=== PATIENT | female | born 1990 ===

== ENCOUNTER 2019-09-24 04:10 | Inpatient (IN) ==
[2019-09-24 05:37] LABS: Mean Corpuscular Hemoglobin 28.8 pg (25-34); Mean Corpuscular Volume 86.3 fL (80-100); Mean Platelet Volume 10.6 fL (7.4-10.4); Platelet Count 176 K/uL (130-400); RDW Coefficient of Variation 15.1 % (11.5-14.5); RDW Standard Deviation 47.3 fL (36.4-46.3); Red Blood Count 4.17 M/uL (4.2-5.4); White Blood Count 13.87 K/uL (4.8-10.8)
[2019-09-24 05:44] LABS: Mean Corpuscular Hgb Conc 33.3 g/dL (32-36)
[2019-09-24 06:03] LABS: Alanine Aminotransferase 18 U/L (12-78); Albumin Level 2.9 gm/dl (3.4-5.0); Aspartate Aminotransferase 11 U/L (15-37); BUN Creatinine Ratio 17.5 (10-20); Bilirubin Direct < 0.1 mg/dl (0-0.2); Blood Urea Nitrogen 14 mg/dl (7-18); Calcium 9.7 mg/dl (8.5-10.1); Carbon Dioxide 22 mmol/L (21-32); Chloride 107 mmol/L (98-107); Creatinine Clr Calc Pharmacy 125.6 ml/min; Est GFR (African American) 119.9; Est GFR (Non-African American) 103.5; Glucose 86 mg/dl (70-99); Potassium 4.1 mmol/L (3.5-5.1); Sodium 136 mmol/L (136-145)
[2019-09-24 06:05] LABS: Albumin Globulin Ratio 0.7 (0.9-2); Alkaline Phosphatase 118 U/L (45-117); Bilirubin,Total 0.2 mg/dl (0.2-1); Globulin 4.1 gm/dl (2.5-4.0)
[2019-09-24] MEDS ORDERED: LACTATED RINGER'S 1,000 ML IV PRN (07:20)
[2019-09-24] MEDS ORDERED: OXYTOCIN 30 UNITS/500 ML BAG IV PRN ×2 (07:20→12:04)
--- NOTE | 2019-09-24 07:20 | Obstetrical Progress Note ---
Date of Service September 24, 2019 Physical Exam Physical Exam: Admit Note 29 F P0000 at 40.6 weeks admitted in labor. Patient of Vick Pascual that was scheduled for IOL this week at [facility] and showed up here at [facility]. Her GBS is positive. Cervix 3/80/-3/vertex/mid-position/soft/intact/vertex. EFW 8.5 lbs. Will admit in labor and start antibiotics. Patient planning for epidural. Results & Data Vital Signs (Past 12 Hours) Vital Signs Temp Resp BP 09/24/19 06:23 141/74 H 09/24/19 05:40 133/69 09/24/19 05:25 150/80 H 09/24/19 05:10 131/69 09/24/19 04:55 153/68 H 09/24/19 04:39 159/82 H 09/24/19 04:36 162/79 H 09/24/19 04:30 133/89 09/24/19 04:25 142/81 H 09/24/19 04:20 165/95 H 09/24/19 04:18 36.9 C 18 09/24/19 04:14 169/100 H 09/24/19 04:11 174/90 H
[2019-09-24] MEDS ORDERED: PENICILLIN G POTASSIUM 6 MU in DEXTROSE 5% 250 ML IV STA (07:24)
[2019-09-24 07:27] LABS: Creatinine Urine Random 98.7 mg/dl; Protein Creatinine Ratio Urine 0.4 (0-0.2)
[2019-09-24] MEDS: PENICILLIN G POTASSIUM 3 MU in DEXTROSE 5% 100 ML IV PRN ×3 (11:42→19:50)
--- NOTE | 2019-09-24 12:04 | Obstetrical Progress Note ---
Date of Service September 24, 2019 Subjective pt dong well FHr; CAT1 ctx; mild , irregular VE 3cm- uncahnged discussed Pitocin augmentation. pt agrees Results & Data Vital Signs (Past 12 Hours) Vital Signs Temp Pulse Resp BP 09/24/19 11:53 112 H 118/67 09/24/19 10:15 111 H 127/67 09/24/19 08:46 99 H 18 122/73 09/24/19 07:41 99 H 121/74 09/24/19 07:29 37.1 C 90 18 129/73 09/24/19 06:23 141/74 H 09/24/19 05:40 133/69 09/24/19 05:25 150/80 H 09/24/19 05:10 131/69 09/24/19 04:55 153/68 H 09/24/19 04:39 159/82 H 09/24/19 04:36 162/79 H 09/24/19 04:30 133/89 09/24/19 04:25 142/81 H 09/24/19 04:20 165/95 H 09/24/19 04:18 36.9 C 18 09/24/19 04:14 169/100 H 09/24/19 04:11 174/90 H
[2019-09-24] MEDS ORDERED: fentaNYL citrate 100 MCG/2 ML VIAL ONE (12:35)
[2019-09-24] MEDS ORDERED: ePHEDrine sulfate 50 MG/ML AMP ONE (12:35)
[2019-09-24] MEDS ORDERED: fentaNYL 2MCG/ML ROPIV 1.25MG/ML 100 ML BAG EPI ONE (12:36)
[2019-09-24] MEDS ORDERED: BUPIVACAINE 0.25% 30 ML VIAL ONE (12:36)
[2019-09-24] MEDS ORDERED: NALOXONE HCL 1 MG in SODIUM CHLORIDE 0.9% 1000ML 1,000 ML IV PRN (13:08)
[2019-09-24] MEDS ORDERED: NALOXONE HCL 0.4 MG/1 ML VIAL/CARP IV PRN (13:08)
[2019-09-24] MEDS ORDERED: NALBUPHINE HCL INJ 10 MG/ML AMP IV PRN (13:08)
[2019-09-24] MEDS ORDERED: DiphenhydrAMINE HCL 50 MG/ML VIAL IV PRN (13:08)
[2019-09-24] MEDS ORDERED: ONDANSETRON INJ 2 MG/ML 2 ML VIAL IV PRN (13:08)
[2019-09-24] MEDS ORDERED: ePHEDrine sulfate 50 MG/ML AMP IV PRN (13:08)
--- NOTE | 2019-09-24 13:10 | Anesthesiology Consultation ---
Date of Service September 24, 2019 Assessment & Plan Chart Review Chart Review: Patient NOT seen in Pre Admission Testing and Acceptable Risk for Labor Epidural Consults Requested none ASA ASA2 Proposed Anesthesia Anesthesia Type: Labor Epidural and CSE Risk / Benefits Reviewed With: PT / POA / Parent / Guardian, Accepts Plan and Informed Consent Obtained History Height/Weight Height: 5 ft 5 in Weight: 99.79 kg Allergies Allergy/AdvReac Type Severity Reaction Status Date / Time No Known Allergies Allergy Verified 09/24/19 05:08 Medications Home Medications Medication Instructions Recorded Confirmed Last Taken PNV cmb#95-ferrous fumarate-FA 1 tab PO DAILY 09/24/19 09/24/19 09/23/19 08:00 [] ferrous sulfate [iron] 325 mg PO DAILY 09/24/19 09/24/19 09/23/19 08:00 Active Medications Generic Name Dose Route Start Last Admin Trade Name Freq PRN Reason Stop Dose Admin Lactated Ringer's 1,000 mls @ 125 mls/hr 09/24/19 07:20 09/24/19 07:53 Lr IV 09/26/19 07:19 125 mls/hr .Q8H PRN Administration L&D Protocol Protocol Penicillin G Potassium 3 mu/ 106 mls @ 100 mls/hr 09/24/19 07:20 09/24/19 11:42 Dextrose IV 10/04/19 07:19 100 mls/hr Q4H PRN Administration Give until delivery Oxytocin 30 units in 500 mls @ 2 mls/hr 09/24/19 12:04 09/24/19 12:27 Pitocin IV 09/26/19 12:03 0.12 units/hr .Q24H PRN 2 mls/hr Labor Induction/Augmentation Administration Protocol 0.12 UNITS/HR NPO Date Last Intake of Fluids: 09/24/19 Time Last Intake of Fluids: 11:00 Date Last Intake of Solids: 09/23/19 Time Last Intake of Solids: 18:00 Past Medical History Medical History Ganglion cyst Hernia Exercise / Class Metabolic Activity II 4-5 Yardwork/Stairs/Walk up hill Past Surgical History Surgical History [place] teeth removed Past Anesthesia History No Hx of Anesthesia Complications and No Family Hx of Anesthesia Complications History of PONV No Hx of PONV and No Hx of Motion Sickness Social History Smoking Status: Former smoker Hx Alcohol Use: No Hx Substance Use: No Review of Systems no chest pain or sob Physical Exam Vital Signs Last Vital Signs Temp 36.9 C 09/24/19 11:53 Pulse 93 H 09/24/19 13:08 Resp 20 09/24/19 11:53 BP 126/70 09/24/19 12:27 Pulse Ox 99 09/24/19 13:08 SpO2 99 on room air ENMT Mouth: no TMJ abnormality Thyromental Distance: > or= 3.5 Finger Breadths Mallampati Class: II Neck normal visual inspection Respiratory normal respiratory effort Auscultation: lungs clear to auscultation bilaterally Cardiovascular Rate/Rhythm: regular rate and regular rhythm Musculoskeletal Spine: normal cervical ROM Neurologic moves all extremities Psychiatric Orientation: alert and oriented x 3 Testing Laboratory Results 09/24/19 05:21 09/24/19 05:21
[2019-09-24] MEDS: fentaNYL 2MCG/ML ROPIV 1.25MG/ML 100 ML BAG EPI PRN ×2 (13:28→21:41)
--- NOTE | 2019-09-24 15:13 | Obstetrical Progress Note ---
Date of Service September 24, 2019 Subjective Pt evaluated after decels. this occurred after pt was placed onher left. FHR is improved after repositioning epidural analgesia on board Ctx 1-3mu VE; 6//-2 Pit; 6MU scalp electrode placed Expectant management for now Results & Data Vital Signs (Past 12 Hours) Vital Signs Temp Pulse Resp BP Pulse Ox 09/24/19 15:08 91 H 97 09/24/19 15:03 105 H 98 09/24/19 14:58 80 96 09/24/19 14:53 82 95 09/24/19 14:50 36.9 C 18 09/24/19 14:48 84 97 09/24/19 14:43 107 H 97 09/24/19 14:38 92 H 97 09/24/19 14:33 96 H 119/67 96 09/24/19 14:28 103 H 96 09/24/19 14:23 102 H 96 09/24/19 14:18 98 H 132/73 96 09/24/19 14:13 107 H 97 09/24/19 14:08 103 H 97 09/24/19 14:03 101 H 130/75 97 09/24/19 13:58 99 H 97 09/24/19 13:53 109 H 97 09/24/19 13:48 104 H 97 09/24/19 13:47 36.9 C 109 H 18 129/67 09/24/19 13:43 106 H 97 09/24/19 13:38 103 H 96 09/24/19 13:36 108 H 124/65 09/24/19 13:33 108 H 96 09/24/19 13:32 106 H 133/68 09/24/19 13:28 110 H 133/68 97 09/24/19 13:24 110 H 142/79 H 09/24/19 13:23 94 H 97 09/24/19 13:20 121 H 150/74 H 09/24/19 13:18 117 H 98 09/24/19 13:13 121 H 132/72 99 09/24/19 13:08 93 H 99 09/24/19 12:27 107 H 126/70 09/24/19 11:53 36.9 C 112 H 20 118/67 09/24/19 10:15 111 H 127/67 09/24/19 08:46 99 H 18 122/73 01/14/20 07:41 99 H 121/74 09/24/19 07:29 37.1 C 90 18 129/73 09/24/19 06:23 141/74 H 09/24/19 05:40 133/69 09/24/19 05:25 150/80 H 09/24/19 05:10 131/69 09/24/19 04:55 153/68 H 09/24/19 04:39 159/82 H 09/24/19 04:36 162/79 H 09/24/19 04:30 133/89 09/24/19 04:25 142/81 H 09/24/19 04:20 165/95 H 09/24/19 04:18 36.9 C 18 09/24/19 04:14 169/100 H 09/24/19 04:11 174/90 H
[2019-09-24] MEDS ORDERED: ACETAMINOPHEN 500 MG TAB ONE (16:55)
[2019-09-24] MEDS ORDERED: ACETAMINOPHEN 500 MG TAB PO PRN (16:57)
[2019-09-24] MEDS ORDERED: METHYLERGONOVINE MALEATE 0.2 MG/ML AMP ONE (23:57)
[2019-09-25] MEDS ORDERED: OXYTOCIN 30 UNITS/500 ML BAG IV PRN (00:14)
[2019-09-25] MEDS ORDERED: ACETAMINOPHEN 325 MG TAB PO PRN (00:14)
[2019-09-25] MEDS ORDERED: miSOPROStoL 200 MCG TAB PR ONE (00:14)
[2019-09-25] MEDS ORDERED: bisacodyL 10 MG SUPP PR PRN (00:14)
[2019-09-25] MEDS ORDERED: HYDROCORTISONE ACETATE 25 MG SUPP PR PRN (00:14)
[2019-09-25] MEDS ORDERED: METHYLERGONOVINE MALEATE 0.2 MG/ML AMP IM ONE (00:14)
[2019-09-25] MEDS ORDERED: DIPHTHERIA/TETANUS/PERTUSSIS 0.5 ML SYR/VIAL IM ONE (00:14)
[2019-09-25] MEDS ORDERED: BENZOCAINE 20% AER SPR 82.5 GM CAN EXT PRN (00:14)
[2019-09-25] MEDS ORDERED: SUPERCREAM 0.870% 15 GM JAR EXT PRN (00:14)
[2019-09-25 00:24] LABS: Base Excess Cord Arterial Bld -8.8 mEq/L (-9-1.8); CO2 Cord Arterial Blood 47 mmHg (39.1-73.5); HCO3 Cord Arterial Blood 19 mmol/L (19.7-28.5); PO2 Cord Arterial Blood 30 mmHg (4.1-31.7); pH Cord Arterial Blood 7.22 (7.1-7.38)
[2019-09-25 00:26] LABS: Oxygen Sat Cord Arterial Blood < 60.0 % (<60)
--- NOTE | 2019-09-25 00:58 | Anesthesia Procedure Note ---
Date of Service September 25, 2019 Anesthesia Post Epidural Note Vital Signs Vital Signs: Temp Pulse Resp BP Pulse Ox 37.1 C 107 H 18 126/71 98 09/25/19 00:34 09/25/19 00:49 09/25/19 00:34 09/25/19 00:49 09/24/19 22:48 Pain Intensity Abdomen: Pain Intensity: 0 Notes Mental Status: alert / awake / arousable and participated in evaluation Nausea / Vomiting: adequately controlled Pain: adequately controlled Airway Patency, RR, SpO2: stable & adequate BP & HR: stable & adequate Hydration State: stable & adequate Neuraxial Anesthesia: was administered and sensory block is resolving Anesthetic Complications: no major complications apparent and Pt Satisfied with anesthetic care Epidural: Removed without complications and With tip intact
[2019-09-25] MEDS: IBUPROFEN 600 MG TAB PO PRN ×4 (02:49→16:41)
--- NOTE | 2019-09-25 08:03 | Delivery Summary ---
DATE OF OPERATION: 09/24/2019 The patient delivered a live in left occiput anterior presentation. There was terminal meconium. was delivered, placed on mother's abdomen. Cord clamped and cut and handed over to the pediatric team. Details of infant's information is in the pediatric record. Cord blood was obtained, so was cord gas, and placenta spontaneously delivered. Inspection of the perineum showed second-degree midline laceration which was repaired in layers with 2-0 Vicryl. There was good hemostasis post repair. Estimated blood loss is 5 mL. Rectal exam post repair showed good sphincter tone. Baby and mother are stable in recovery. All instruments were removed from the vagina and accounted for including sponges, needles, and retractors. I attest to the content of the Intraoperative Record and any orders documented therein. Any exception s are noted below.
[2019-09-25] MEDS: FERROUS SULFATE 325 MG TAB PO SCH (08:22)
[2019-09-25] MEDS: PRENATAL VITAMIN 1 TAB PO SCH (08:22)
[2019-09-25] MEDS: DOCUSATE SODIUM 100 MG CAP PO SCH ×2 (08:22→20:21)
--- NOTE | 2019-09-25 10:40 | Obstetrical Progress Note ---
Date of Service September 25, 2019 Physical Exam Physical Exam: abdomen soft and non tender no calf tenderness ambulating well vaginal bleeding scant predelivery hgb 12.0 Results & Data Vital Signs (Past 12 Hours) Vital Signs Temp Pulse Pulse Resp BP BP Pulse Ox 09/25/19 07:05 36.9 C 97 H 18 129/83 98 09/25/19 04:45 37.2 C 09/25/19 03:30 38.3 C H 09/25/19 03:00 37.7 C H 100 H 18 146/76 H 97 09/25/19 02:04 37.1 C 103 H 18 139/66 09/25/19 01:19 113 H 18 136/64 09/25/19 01:05 100 H 18 135/67 09/25/19 00:49 107 H 18 126/71 09/25/19 00:34 37.1 C 111 H 18 124/59 L 09/25/19 00:19 107 H 135/63 09/24/19 23:56 120 H 139/64 09/24/19 23:00 37.0 C 18 09/24/19 22:49 115 H 141/77 H 09/24/19 22:48 111 H 98 09/24/19 22:43 107 H 97
[2019-09-25] MEDS ORDERED: LIDOCAINE 2% JELLY 5 ML TUBE ONE (14:31)
[2019-09-26] MEDS: IBUPROFEN 600 MG TAB PO PRN ×2 (00:31→07:55)
[2019-09-26 07:14] LABS: Hematocrit (blood only) 30.9 % (37-47); Hemoglobin 10.2 g/dL (12.0-16.0); Mean Corpuscular Hemoglobin 28.8 pg (25-34); Mean Corpuscular Volume 87.3 fL (80-100); Mean Platelet Volume 10.4 fL (7.4-10.4); Platelet Count 133 K/uL (130-400); RDW Coefficient of Variation 15.6 % (11.5-14.5); RDW Standard Deviation 50.4 fL (36.4-46.3); Red Blood Count 3.54 M/uL (4.2-5.4); White Blood Count 11.57 K/uL (4.8-10.8)
[2019-09-26] MEDS: PRENATAL VITAMIN 1 TAB PO SCH (07:55)
[2019-09-26] MEDS: DOCUSATE SODIUM 100 MG CAP PO SCH (07:55)
[2019-09-26] MEDS: FERROUS SULFATE 325 MG TAB PO SCH (07:55)
--- NOTE | 2019-09-26 08:14 | Obstetrical Progress Note ---
Date of Service September 26, 2019 Subjective Patient is seen and examined. She feels well, no complaints. Ambulating without dizziness Voiding without difficulty Tolerating regular diet with out N&V Bleeding is minimal No fever/ chills/ CP/ SOB/ N&V/ Leg pain Breast feeding without problems Vital Signs Temp Pulse Resp BP Pulse Ox 09/26/19 00:20 36.5 C 90 16 113/79 98 09/25/19 19:40 36.8 C 93 H 18 119/79 98 09/25/19 14:55 36.8 C 96 H 18 142/79 H 97 09/25/19 11:05 36.6 C 96 H 16 121/83 97 Intake and Output 09/25/19 09/26/19 09/26/19 22:59 06:59 14:59 Output Total 200 / 2250 550 / 2250 Balance -200 / -2250 -550 / -2250 Output: Urine 200 / 1550 550 / 1550 Lab Results 09/24/19 09/24/19 09/24/19 Range/Units 05:21 05:21 06:55 WBC 13.87 H (4.8-10.8) K/uL RBC 4.17 L (4.2-5.4) M/uL Hgb 12.0 (12.0-16.0) g/dL Hct 36.0 L (37-47) % MCV 86.3 (80-100) fL MCH 28.8 (25-34) pg MCHC 33.3 (32-36) g/dL RDW Std Deviation 47.3 H (36.4-46.3) fL RDW Coeff of Nohelia 15.1 H (11.5-14.5) % Plt Count 176 (130-400) K/uL MPV 10.6 H (7.4-10.4) fL Cord ABG pH (7.1-7.38) Cord ABG pCO2 (39.1-73.5) mmHg Cord ABG pO2 (4.1-31.7) mmHg Cord ABG HCO3 (19.7-28.5) mmol/L Cord ABG Base Excess (-9-1.8) mEq/L Cord ABG O2 Sat (<60) % Cord VBG pH Cord VBG pCO2 Cord VBG pO2 Cord VBG HCO3 Cord VBG Base Excess Cord VBG O2 Sat Barometric Pressure Blood Gas Comments Sodium 136 (136-145) mmol/L Potassium 4.1 (3.5-5.1) mmol/L Chloride 107 (98-107) mmol/L Carbon Dioxide 22 (21-32) mmol/L Anion Gap 7.0 (3-11) BUN 14 (7-18) mg/dl Creatinine 0.78 (0.6-1.2) mg/dl Est Cr Clr Drug Dosing 125.6 ml/min Est GFR ( Amer) 119.9 Est GFR (Non-Af Amer) 103.5 BUN/Creatinine Ratio 17.5 (10-20) Glucose 86 (70-99) mg/dl Calcium 9.7 (8.5-10.1) mg/dl Total Bilirubin 0.2 (0.2-1) mg/dl Direct Bilirubin < 0.1 (0-0.2) mg/dl AST 11 L (15-37) U/L ALT 18 (12-78) U/L Alkaline Phosphatase 118 H (45-117) U/L Total Protein 7.0 (6.4-8.2) gm/dl Albumin 2.9 L (3.4-5.0) gm/dl Globulin 4.1 H (2.5-4.0) gm/dl Albumin/Globulin Ratio 0.7 L (0.9-2) Ur Random Creatinine 98.7 mg/dl U Random Total Protein 38.0 H (0-11.9) mg/dl Protein/Creatinin Ratio 0.4 H (0-0.2) 09/24/19 09/24/19 09/26/19 Range/Units 23:50 23:50 06:35 WBC 11.57 H (4.8-10.8) K/uL RBC 3.54 L (4.2-5.4) M/uL Hgb 10.2 L (12.0-16.0) g/dL Hct 30.9 L (37-47) % MCV 87.3 (80-100) fL MCH 28.8 (25-34) pg MCHC 33.0 (32-36) g/dL RDW Std Deviation 50.4 H (36.4-46.3) fL RDW Coeff of Nohelia 15.6 H (11.5-14.5) % Plt Count 133 (130-400) K/uL MPV 10.4 (7.4-10.4) fL Cord ABG pH 7.22 (7.1-7.38) Cord ABG pCO2 47 (39.1-73.5) mmHg Cord ABG pO2 30 (4.1-31.7) mmHg Cord ABG HCO3 19 L (19.7-28.5) mmol/L Cord ABG Base Excess -8.8 (-9-1.8) mEq/L Cord ABG O2 Sat < 60.0 (<60) % Cord VBG pH Cancelled Cord VBG pCO2 Cancelled Cord VBG pO2 Cancelled Cord VBG HCO3 Cancelled Cord VBG Base Excess Cancelled Cord VBG O2 Sat Cancelled Barometric Pressure Cancelled Blood Gas Comments DONATO Cancelled Sodium (136-145) mmol/L Potassium (3.5-5.1) mmol/L Chloride (98-107) mmol/L Carbon Dioxide (21-32) mmol/L Anion Gap (3-11) BUN (7-18) mg/dl Creatinine (0.6-1.2) mg/dl Est Cr Clr Drug Dosing ml/min Est GFR ( Amer) Est GFR (Non-Af Amer) BUN/Creatinine Ratio (10-20) Glucose (70-99) mg/dl Calcium (8.5-10.1) mg/dl Total Bilirubin (0.2-1) mg/dl Direct Bilirubin (0-0.2) mg/dl AST (15-37) U/L ALT (12-78) U/L Alkaline Phosphatase (45-117) U/L Total Protein (6.4-8.2) gm/dl Albumin (3.4-5.0) gm/dl Globulin (2.5-4.0) gm/dl Albumin/Globulin Ratio (0.9-2) Ur Random Creatinine mg/dl U Random Total Protein (0-11.9) mg/dl Protein/Creatinin Ratio (0-0.2) PE: General: Alert, orientedx3, NAD Abd: soft, NT, fundus firm, below Umbilicus Perineum intact, Lochia rubra minimal Ext; NT, no edema AP: 29 yo s/p , ppd# 2 VSS Afebrile doing well Continue routine care All questions were answered D/C home , f/u in office Results & Data Vital Signs (Past 12 Hours) Vital Signs Temp Pulse Resp BP Pulse Ox 09/26/19 00:20 36.5 C 90 16 113/79 98
[2019-09-26] MEDS ORDERED: bisacodyL 5 MG TABEC PO SCH (20:00)
== END 2019-09-26 14:05 | disposition home or self-care (01) | DRG 807 ==
LOC: OPB 04:10 → 4S1 04:13 → 4S2 09-25 02:35

== ENCOUNTER 2021-08-16 15:30 | Inpatient (IN) ==
[2021-08-16] MEDS ORDERED: DINOPROSTONE 10 MG INSERT PV ONE (15:38)
[2021-08-16] MEDS ORDERED: OXYTOCIN 30 UNITS/500 ML BAG IV PRN (15:38)
--- NOTE | 2021-08-16 15:51 | History & Physical Report ---
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 Initial blood pressure was 142/82 and repeated 150/78. She returned 4 hours later and repeat blood pressure was 148/88. This met the criteria of gestational hypertension at term and she was sent to [facility] for induction of labor. Upon presentation she denies contractions, leaking of fluid or vaginal bleeding. Notes good movement. Denies headache, blurry vision, right upper q uadrant epigastric pain. Otherwise feeling well She has been on Valtrex since 36 weeks and denies any prodromal symptoms or current outbreaks. Only outbreak was Apr 2020, vulvovaginal, no outbreaks since. records reviewed Regnancy complicated by Rh- status, class II obesity, history of HSV, GBS positive Allergies Allergy/AdvReac Type Severity Reaction Status Date / Time No Known Allergies Allergy Verified 09/24/19 05:08 Home Medications Medication Instructions Recorded Confirmed Type ferrous sulfate 325 mg (65 mg 325 mg PO DAILY 09/24/19 08/16/21 History iron) tablet (iron) vit no.95-ferrous 1 tab PO DAILY 09/24/19 08/16/21 History fumarate 28 mg-folic acid 800 mcg tablet () valacyclovir 500 mg tablet 500 mg PO BID 08/16/21 08/16/21 History (Valtrex) Past Med/Surg History Medical History (Updated 08/16/21 @ 15:53 by Martha Peralta MD, PhD) Ganglion cyst Hernia Surgical History [place] teeth removed Social History Smoking Status: Never smoker Hx Alcohol Use: No Hx Substance Use: No Preferred Language: [place] Communication Ability: Effective [employer]r [employer] Required: No Beliefs That Will Affect Care: None marital status: Current Living Situation: Family Other Information That Helps Us Care for You: No Feels Safe at Home: Yes Safety Concerns: Feels Safe At This Time Assistive Devices: None Review of Systems Review of Systems: All systems reviewed & are unremarkable except as noted in HPI & below Physical Exam Constitutional: WD/WN, vitals as above Respiratory: normal respiratory effort, lungs clear to auscultation Cardiovascular: RRR, no murmur, no edema Gastrointestinal (Abdomen): normal bowel sounds, soft, nontender, no hepatosplenomegaly fundus 40 weeks Robert: 8 lbs 5 oz cephalic Genitourinary: FHT: Baseline 145-150 mod variability, +accels, no decles, cat 1 tracing [place]: irregular contractions External genitalia normal, brightlight exam negative for any active lesions Cx: 2/50/-3 sutures felt, cervadil placed
[2021-08-16] MEDS ORDERED: PENICILLIN G POTASSIUM 6 MU in DEXTROSE 5% 250 ML IV ONE (16:00)
[2021-08-16] MEDS ORDERED: PATIENT'S HEIGHT AND/OR WEIGHT NEEDED SCH (16:00)
[2021-08-16 16:17] LABS: Hematocrit (blood only) 34.3 % (37-47); Hemoglobin 11.3 g/dL (12.0-16.0); Mean Corpuscular Hemoglobin 28.1 pg (25-34); Mean Corpuscular Hgb Conc 32.9 g/dL (32-36); Mean Corpuscular Volume 85.3 fL (80-100); Mean Platelet Volume 10.2 fL (7.4-10.4); Nucleated RBC # (auto) 0.02 K/uL (0-0); Nucleated RBC % (auto) 0.2 %; Platelet Count 174 K/uL (130-400); RDW Coefficient of Variation 15.2 % (11.5-14.5); RDW Standard Deviation 47.5 fL (36.4-46.3); Red Blood Count 4.02 M/uL (4.2-5.4); White Blood Count 12.36 K/uL (4.8-10.8)
[2021-08-16 16:49] LABS: Alanine Aminotransferase 21 (12-78); Albumin Level 2.7 gm/dl (3.4-5.0); Aspartate Aminotransferase 14 U/L (15-37); Blood Urea Nitrogen 13 mg/dl (7-18); Calcium 9.6 mg/dl (8.5-10.1); Carbon Dioxide 22 mmol/L (21-32); Chloride 108 mmol/L (98-107); Est GFR (African American) 109.7 ml/min; Est GFR (Non-African American) 94.6 ml/min; Glucose 96 mg/dl (70-99); Potassium 3.8 mmol/L (3.5-5.1); Sodium 139 mmol/L (136-145)
[2021-08-16 16:52] LABS: Albumin Globulin Ratio 0.6 (0.9-2); Alkaline Phosphatase 109 U/L (45-117); Bilirubin,Total 0.2 mg/dl (0.2-1); Globulin 4.5 gm/dl (2.5-4.0); Total Protein 7.2 gm/dl (6.4-8.2)
[2021-08-16] MEDS ORDERED: ACETAMINOPHEN 500 MG TAB PO PRN (19:56)
[2021-08-16] MEDS ORDERED: ACETAMINOPHEN 500 MG TAB ONE (20:09)
[2021-08-16 20:51] LABS: Protein Creatinine Ratio Urine 0.2 (0-0.2); Total Protein Urine Random 28.8 mg/dl (0-11.9)
[2021-08-16] MEDS: valACYclovir HCL 500 MG TABLET PO SCH (20:58)
[2021-08-17 05:46] LABS: Hematocrit (blood only) 33.5 % (37-47); Hemoglobin 10.9 g/dL (12.0-16.0); Mean Corpuscular Hemoglobin 28.2 pg (25-34); Mean Corpuscular Hgb Conc 32.5 g/dL (32-36); Mean Corpuscular Volume 86.8 fL (80-100); Mean Platelet Volume 10.4 fL (7.4-10.4); Platelet Count 162 K/uL (130-400); RDW Coefficient of Variation 15.5 % (11.5-14.5); RDW Standard Deviation 49.6 fL (36.4-46.3); Red Blood Count 3.86 M/uL (4.2-5.4); White Blood Count 9.79 K/uL (4.8-10.8)
[2021-08-17 06:24] LABS: Albumin Level 2.4 gm/dl (3.4-5.0); BUN Creatinine Ratio 16.5 (10-20); Calcium 8.5 mg/dl (8.5-10.1); Creatinine Clr Calc Pharmacy 140.9 ml/min; Est GFR (African American) 134.8 ml/min; Est GFR (Non-African American) 116.3 ml/min; Potassium 3.8 mmol/L (3.5-5.1)
[2021-08-17 06:26] LABS: Albumin Globulin Ratio 0.6 (0.9-2); Bilirubin,Total 0.3 mg/dl (0.2-1); Globulin 3.9 gm/dl (2.5-4.0); Total Protein 6.3 gm/dl (6.4-8.2)
[2021-08-17] MEDS: LACTATED RINGER'S 1,000 ML IV PRN ×2 (09:00→11:31)
[2021-08-17] MEDS ORDERED: OXYTOCIN 30 UNITS/500 ML BAG IV PRN ×2 (09:06→17:12)
--- NOTE | 2021-08-17 09:09 | Labor Progress Brief Note ---
Date of Service August 17, 2021 Assessment & Plan (1) Gestational hypertension: Plan: Gest HTN induction Day 2 Received Cervidil on day #1 FHR; CAT1 Ctx Minimal VE; 1-50/post Solis bulb placed with 30 cc saline pt tolerated procedure well starting Pitocin augmentation Results & Data ([facility]) Vital Signs (Past 12 Hours) Vital Signs Temp Pulse Resp BP 08/17/21 09:02 97 H 135/75 08/17/21 07:19 103 H 136/79 08/17/21 07:15 36.7 C 18 08/17/21 05:51 37.0 C 86 18 131/63 08/17/21 04:27 77 114/60 08/17/21 04:26 16 08/17/21 03:21 93 H 16 115/61 08/17/21 02:27 87 16 117/57 L 08/17/21 01:13 36.5 C 93 H 16 128/58 L 08/16/21 23:47 100 H 16 117/60 08/16/21 22:21 36.4 C L 85 18 109/59 L
[2021-08-17] MEDS: valACYclovir HCL 500 MG TABLET PO SCH ×2 (10:06→22:16)
[2021-08-17] MEDS ORDERED: SODIUM CHLORIDE 0.9% INJ 10 ML VIAL ONE (10:43)
[2021-08-17] MEDS ORDERED: ePHEDrine sulfate 50 MG/ML AMP ONE (10:43)
[2021-08-17] MEDS ORDERED: fentaNYL citrate 100 MCG/2 ML VIAL ONE (10:44)
[2021-08-17] MEDS ORDERED: BUPIVACAINE 0.25% 30 ML VIAL ONE (10:44)
[2021-08-17] MEDS ORDERED: fentaNYL 2MCG/ML ROPIVACAINE 1.25MG/ML 100 ML BAG EPI ONE (10:45)
[2021-08-17] MEDS ORDERED: NALOXONE HCL 0.4 MG/1 ML VIAL/CARP IV PRN (10:52)
[2021-08-17] MEDS ORDERED: NALBUPHINE HCL INJ 10 MG/ML AMP IV PRN (10:52)
[2021-08-17] MEDS ORDERED: fentaNYL 2MCG/ML ROPIVACAINE 1.25MG/ML 100 ML BAG EPI PRN (10:52)
[2021-08-17] MEDS ORDERED: ePHEDrine sulfate 50 MG/ML AMP IV PRN (10:52)
[2021-08-17] MEDS ORDERED: diphenhydrAMINE 50 MG/ML VIAL IV PRN (10:52)
[2021-08-17] MEDS ORDERED: NALOXONE HCL 1 MG in SODIUM CHLORIDE 0.9% 1000ML 1,000 ML IV PRN (10:52)
--- NOTE | 2021-08-17 10:52 | Anesthesiology Consultation ---
Date of Service August 17, 2021 Assessment & Plan (1) Encounter for pre-operative examination: Chart Review Chart Review: Patient NOT seen in Pre Admission Testing and Acceptable Risk for Labor Epidural Consults Requested none History Height/Weight Height: 5 ft 5 in Weight: 104.326 kg Allergies Allergy/AdvReac Type Severity Reaction Status Date / Time No Known Allergies Allergy Verified 09/24/19 05:08 Medications Home Medications Medication Instructions Recorded Confirmed Last Taken ferrous sulfate 325 mg (65 mg 325 mg PO DAILY 09/24/19 08/16/21 08/13/21 iron) tablet (iron) vit no.95-ferrous 1 tab PO DAILY 09/24/19 08/16/21 08/16/21 fumarate 28 mg-folic acid 800 mcg tablet () valacyclovir 500 mg tablet 500 mg PO BID 08/16/21 08/16/21 08/15/21 (Valtrex) Active Medications Generic Name Dose Route Start Last Admin Trade Name Freq PRN Reason Stop Dose Admin Lactated Ringer's 1,000 mls @ 125 mls/hr 08/16/21 15:38 08/17/21 09:00 Lr IV 08/18/21 15:37 125 mls/hr .Q8H PRN Administration L&D Protocol Protocol Oxytocin 30 units in 500 mls @ 4 mls/hr 08/17/21 09:06 08/17/21 10:05 Pitocin IV 08/19/21 09:05 0.24 units/hr .Q24H PRN 4 mls/hr Labor Induction/Augmentation Titration Protocol 0.24 UNITS/HR Valacyclovir HCl 500 mg 08/16/21 21:00 08/17/21 10:06 Valacyclovir Hcl 500 Mg Tablet PO 08/23/21 20:59 500 mg BID JUDY Administration Past Medical History Medical History (Updated 08/17/21 @ 10:52 by Fidel Castro DO) Ganglion cyst Hernia Past Surgical History Surgical History [place] teeth removed Social History Smoking Status: Never smoker Hx Alcohol Use: No Hx Substance Use: No Physical Exam Vital Signs Last Vital Signs Temp 98.1 F 08/17/21 09:10 Pulse 101 H 08/17/21 10:07 Resp 18 08/17/21 10:30 BP 130/67 08/17/21 10:07 Testing Laboratory Results 08/17/21 05:22 08/17/21 05:22 Blood Type A Negative 08/16/21 16:08 Antibody Screen NEGATIVE 08/16/21 16:08
--- NOTE | 2021-08-17 14:43 | Labor Progress Brief Note ---
Date of Service August 17, 2021 Assessment & Plan (1) Gestational hypertension: Plan: Pt doing well No complaints FHR CAT1 Ctx; 2-4mins VE 5/75/0 Pit; 18 AROM with Amnio hook - clear Anticipate VD Admission and Anticipated Discharge Date Admission Date: August 16, 2021 Results & Data ([facility]) Vital Signs (Past 12 Hours) Vital Signs Temp Pulse Resp BP Pulse Ox 08/17/21 14:36 90 100 08/17/21 14:31 83 100 08/17/21 14:29 73 125/59 L 08/17/21 14:26 91 H 100 08/17/21 14:21 94 H 100 08/17/21 14:16 91 H 100 08/17/21 14:14 87 128/63 08/17/21 14:11 97 H 100 08/17/21 14:06 94 H 100 08/17/21 14:01 93 H 98 08/17/21 13:59 99 H 132/61 08/17/21 13:56 86 99 08/17/21 13:51 88 100 08/17/21 13:46 86 100 08/17/21 13:45 100 H 128/57 L 08/17/21 13:41 85 99 08/17/21 13:36 84 100 08/17/21 13:31 96 H 100 08/17/21 13:30 18 08/17/21 13:29 86 112/59 L 08/17/21 13:26 91 H 99 08/17/21 13:21 86 99 08/17/21 13:16 99 H 118/57 L 100 08/17/21 13:11 100 H 99 08/17/21 13:06 98 H 99 08/17/21 13:01 101 H 99 08/17/21 13:00 18 08/17/21 12:59 96 H 123/60 08/17/21 12:56 94 H 99 08/17/21 12:51 104 H 99 08/17/21 12:46 97 H 98 08/17/21 12:44 94 H 117/58 L 08/17/21 12:41 89 99 08/17/21 12:36 88 98 08/17/21 12:31 89 98 08/17/21 12:30 36.7 C 18 08/17/21 12:28 93 H 121/58 L 08/17/21 12:26 96 H 115/57 L 99 08/17/21 12:24 89 113/55 L 08/17/21 12:22 93 H 120/58 L 08/17/21 12:21 99 H 99 08/17/21 12:20 85 117/60 08/17/21 12:18 95 H 118/61 08/17/21 12:16 89 115/56 L 98 08/17/21 12:14 90 114/56 L 08/17/21 12:13 89 119/58 L 08/17/21 12:11 88 116/50 L 99 08/17/21 12:08 83 113/55 L 08/17/21 12:06 90 119/55 L 99 08/17/21 12:04 86 122/58 L 08/17/21 12:02 89 119/56 L 08/17/21 12:01 83 98 08/17/21 12:00 89 18 119/55 L 08/17/21 11:58 96 H 117/58 L 08/17/21 11:56 85 120/59 L 99 08/17/21 11:54 94 H 112/58 L 08/17/21 11:53 86 125/59 L 08/17/21 11:51 93 H 115/56 L 99 08/17/21 11:49 88 107/54 L 08/17/21 11:47 90 115/62 08/17/21 11:46 93 H 100 08/17/21 11:45 91 H 125/62 08/17/21 11:42 100 H 132/68 08/17/21 11:41 90 99 08/17/21 11:40 94 H 18 126/62 08/17/21 11:38 94 H 18 117/58 L 08/17/21 11:37 94 H 123/62 08/17/21 11:36 96 H 18 98 08/17/21 11:34 90 18 120/58 L 08/17/21 11:32 93 H 18 121/55 L 08/17/21 11:31 91 H 120/56 L 98 08/17/21 11:30 18 08/17/21 11:29 85 123/59 L 08/17/21 11:28 18 08/17/21 11:26 95 H 18 127/61 98 08/17/21 11:25 90 126/60 08/17/21 11:24 18 08/17/21 11:22 94 H 18 126/60 08/17/21 11:21 92 H 123/61 99 08/17/21 11:16 103 H 126/77 100 08/17/21 11:15 96 H 117/78 08/17/21 11:13 104 H 143/66 H 08/17/21 11:11 97 H 100 08/17/21 11:06 104 H 100 08/17/21 11:05 104 H 146/69 H 08/17/21 11:02 18 08/17/21 10:30 18 08/17/21 10:07 101 H 130/67 08/17/21 10:00 18 08/17/21 09:30 18 08/17/21 09:10 36.7 C 18 08/17/21 09:02 97 H 135/75 08/17/21 07:19 103 H 136/79 08/17/21 07:15 36.7 C 18 08/17/21 05:51 37.0 C 86 18 131/63 08/17/21 04:27 77 114/60 08/17/21 04:26 16 08/17/21 03:21 93 H 16 115/61
[2021-08-17] MEDS ORDERED: METHYLERGONOVINE MALEATE 0.2 MG/ML AMP ONE (16:49)
[2021-08-17] MEDS ORDERED: LIDOCAINE 1% LOCAL 20 ML VIAL ONE (16:50)
[2021-08-17] MEDS ORDERED: miSOPROStoL 200 MCG TAB ONE (16:50)
[2021-08-17] MEDS ORDERED: SUPERCREAM 0.870% 15 GM JAR EXT PRN (17:12)
[2021-08-17] MEDS ORDERED: METHYLERGONOVINE MALEATE 0.2 MG/ML AMP IM ONE (17:12)
[2021-08-17] MEDS ORDERED: ACETAMINOPHEN 325 MG TAB PO PRN (17:12)
[2021-08-17] MEDS ORDERED: HYDROCORTISONE ACETATE 25 MG SUPP PR PRN (17:12)
[2021-08-17] MEDS ORDERED: miSOPROStoL 200 MCG TAB PR ONE (17:12)
[2021-08-17] MEDS ORDERED: bisacodyL 10 MG SUPP PR PRN (17:12)
[2021-08-17] MEDS ORDERED: DIPHTHERIA/TETANUS/PERTUSSIS 0.5 ML SYR/VIAL IM ONE (17:12)
[2021-08-17] MEDS ORDERED: BENZOCAINE 20% AER SPR 82.5 GM CAN EXT PRN (17:12)
--- NOTE | 2021-08-17 17:18 | Anesthesia Procedure Note ---
Date of Service August 17, 2021 Anesthesia Post Epidural Note Vital Signs Vital Signs: Temp Pulse Resp BP Pulse Ox 97.9 F 100 H 18 104/51 L 99 08/17/21 14:30 08/17/21 17:16 08/17/21 16:30 08/17/21 17:14 08/17/21 17:16 Pain Intensity Lower Abdomen: Pain Intensity: 5 Notes Mental Status: alert / awake / arousable and participated in evaluation Nausea / Vomiting: adequately controlled Pain: adequately controlled Airway Patency, RR, SpO2: stable & adequate BP & HR: stable & adequate Hydration State: stable & adequate Neuraxial Anesthesia: was administered and sensory block is resolving Anesthetic Complications: no major complications apparent and Pt Satisfied with anesthetic care Epidural: Removed without complications and With tip intact
[2021-08-17] MEDS ORDERED: PENICILLIN G POTASSIUM 3 MU in DEXTROSE 5% 100 ML IV PRN (17:19)
[2021-08-17 17:32] LABS: Base Excess Cord Arterial Bld -3.3 mEq/L (-9-1.8); Base Excess Cord Venous Blood -1.1 mEq/L (-7.7-1.9); CO2 Cord Arterial Blood 54 mmHg (39.1-73.5); Cord Venous Blood HCO3 23 mmol/L (18.4-26.8); Cord Venous Blood PCO2 37 mmHg (30.4-57.2); Cord Venous Blood PO2 33 mmHg (14.1-43.3); Cord Venous Blood pH 7.41 (7.20-7.44); HCO3 Cord Arterial Blood 24 mmol/L (19.7-28.5); PO2 Cord Arterial Blood 21 mmHg (4.1-31.7); pH Cord Arterial Blood 7.27 (7.1-7.38)
[2021-08-17 17:33] LABS: Oxygen Sat Cord Arterial Blood < 60.0 % (<60)
[2021-08-17] MEDS: IBUPROFEN 600 MG TAB PO PRN (19:34)
[2021-08-17] MEDS: DOCUSATE SODIUM 100 MG CAP PO SCH (20:40)
--- NOTE | 2021-08-17 21:49 | Delivery Summary ---
DATE OF DELIVERY: 08/17/2021. DELIVERY NOTE: The patient delivered a live male in right occiput anterior presentation. The re was nuchal cord, which was easily reduced. Infant was delivered and placed on mother's abdomen. Delayed cord clamp was performed. Cord blood and cord gases were obtained. Placenta was spontaneous ly delivered. Placenta was sent to pathology for pathological analysis because the patient has a his tory of gestational hypertension. Inspection of the perineum showed a second-degree midline laceration, which was repaired with 2-0 Froilan ryl in layers. Rectal exam post repair showed good sphincter tone. There were no sutures palpated i n the rectum. Estimated blood loss was 450 mL. Baby and mother are doing well in recovery. All instruments were r emoved from the vagina and accounted for x2 including sponges, needles, and retractors. The patient' s Apgars and weight are in the pediatric record. Job ID: [id number]
[2021-08-18] MEDS: IBUPROFEN 600 MG TAB PO PRN ×4 (02:34→16:31)
[2021-08-18 06:46] LABS: Hematocrit (blood only) 30.4 % (37-47); Hemoglobin 9.9 g/dL (12.0-16.0); Mean Corpuscular Hgb Conc 32.6 g/dL (32-36); Mean Corpuscular Volume 85.9 fL (80-100); Mean Platelet Volume 10.1 fL (7.4-10.4); Platelet Count 133 K/uL (130-400); RDW Coefficient of Variation 15.4 % (11.5-14.5); RDW Standard Deviation 48.3 fL (36.4-46.3); Red Blood Count 3.54 M/uL (4.2-5.4); White Blood Count 11.77 K/uL (4.8-10.8)
--- NOTE | 2021-08-18 07:30 | Obstetrical Progress Note ---
Date of Service August 18, 2021 Assessment & Plan (1) Gestational hypertension: Continue routine PP care Plan for discharge home later today after 24 hrs if baby is discharged. Otherwise plan for discharge tomorrow Subjective Ambulation: ambulating normally Voiding: no voiding problems Passing Gas:: Yes Diet Tolerance:: regular diet Lochia:: Moderate Feeding Type:: bottle feeding Current Pain Level(1-10): 0 Wants to go home today if baby is discharged Review of Systems All systems reviewed & are unremarkable except as noted in HPI & below Physical Exam Constitutional WD/WN, vitals as above Respiratory normal respiratory effort, lungs clear to auscultation Cardiovascular RRR, no murmur, no edema Gastrointestinal (Abdomen) normal bowel sounds, soft, nontender, no hepatosplenomegaly Results & Data ([facility]) Vital Signs (Past 12 Hours) Vital Signs Temp Pulse Resp BP Pulse Ox 08/18/21 04:20 36.9 C 100 H 18 118/73 98 08/18/21 00:01 36.7 C 92 H 18 118/73 97
[2021-08-18] MEDS: DOCUSATE SODIUM 100 MG CAP PO SCH (07:48)
[2021-08-18] MEDS ORDERED: PRENATAL VITAMIN 1 TAB PO SCH (08:00)
[2021-08-18] MEDS ORDERED: FERROUS SULFATE 325 MG TAB PO SCH (08:00)
[2021-08-18 10:44] VITALS: O2SAT 96
[2021-08-18] MEDS: valACYclovir HCL 500 MG TABLET PO SCH (11:28)
[2021-08-18 16:47] VITALS: BP 131/75; PULSE 102; TEMP 98.1
[2021-08-18] MEDS ORDERED: bisacodyL 5 MG TABEC PO SCH (20:00)
== END 2021-08-18 17:49 | disposition home or self-care (01) | DRG 806 ==
LOC: OPB 15:30 → 4S1 15:33 → 4S2 08-17 19:13